=== PATIENT | female | born 1965 | race Caucasian/White ===

== ENCOUNTER → 2016-11-27 | Outpatient (CLI) | payer BC ==
[~2016-11-27] MED LIST: BYSTOLIC10 MG PO; ESSENTIAL DAIL1 EACH PO; KLONOPIN1 MG PO; PROTONIX40 MG PO; ZOLOFT50 MG PO
== END | disposition short-term general hospital (02) ==
LOC: CLORTH 11:11
DX: M17.11 Unilateral primary osteoarthritis, right knee (principal)
CPT/HCPCS: J1100

== ENCOUNTER → 2017-01-08 | Outpatient (CLI) | payer BC | END | disposition short-term general hospital (02) | LOC: CLORTH 07:37 | DX: M17.11 Unilateral primary osteoarthritis, right knee (principal) ==